=== PATIENT | male | born 1955 | race Caucasian/White ===

== ENCOUNTER → 2016-05-11 | Day surgery (SDC) | payer OTHER | END | disposition home or self-care (01) | LOC: FIMAGING 12:20 | PROVIDERS: ATTEND Internal Medicine Infectious Disease | PROC: 02HV33Z Insertion of Infusion Device into Superior Vena Cava, Percutaneous Approach (ICD-10-PCS; principal; 2016-05-11) | DX: T81.4XXA Infection following a procedure, initial encounter (principal) | CPT/HCPCS: 36569; 77001; C1751 ==

== ENCOUNTER → 2016-12-19 | Outpatient (CLI) | payer OTHER ==
[~2016-12-19] MED LIST: LIDOCAINE 1% 300 MG/30 ML SDV ONE
[2016-12-19 13:40] LABS: PROTEIN, CSF 54 mg/dL (12-60)
[2016-12-19 13:42] LABS: CSF APPEARANCE CLEAR (CLEAR); CSF COLOR COLORLESS (COLORLESS); WBC, CSF 0 /mm3 (0-5)
[2016-12-19 13:48] LABS: CSF APPEARANCE CLEAR (CLEAR); CSF COLOR COLORLESS (COLORLESS)
[2016-12-19 14:01] LABS: WBC, CSF 0 /mm3 (0-5)
== END ==
LOC: FIMAGING 08:55
PROVIDERS: ATTEND Psychiatry & Neurology Neurology
PROC: 009U3ZX Drainage of Spinal Canal, Percutaneous Approach, Diagnostic (ICD-10-PCS; principal; 2016-12-19)
DX: R25.2 Cramp and spasm (principal); R41.3 Other amnesia
CPT/HCPCS: 82784-90; 83018-90; 83916-90

== ENCOUNTER → 2017-02-07 | Outpatient (CLI) | payer OTHER | LOC: CIMAGING 14:17 | PROVIDERS: ATTEND Orthopaedic Surgery | DX: S49.91XA Unspecified injury of right shoulder and upper arm, initial encounter (principal) | CPT/HCPCS: 73030-PO ==

== ENCOUNTER 2018-05-15 06:28 | Observation (INO) | payer OTHER ==
[2018-05-15] MEDS ORDERED: DIAZEPAM 5 MG TAB PO ONE (06:33)
[2018-05-15] MEDS ORDERED: NS 1,000 ML IV ONE (06:33)
[2018-05-15] MEDS ORDERED: ASPIRIN EC 325 MG TAB PO ONE (06:33)
[2018-05-15] MEDS ORDERED: FAMOTIDINE 20 MG TAB PO ONE (06:33)
[2018-05-15] MEDS ORDERED: diphenhydrAMINE 25 MG CAP PO ONE (06:33)
[2018-05-15 07:37] LABS: PLATELET COUNT 192 10^3/uL (150-400)
[2018-05-15 07:54] LABS: INR 0.92 (0.83-1.16)
[2018-05-15] MEDS ORDERED: fentaNYL 100 MCG/2 ML INJ ONE ×2 (08:03→10:02)
[2018-05-15] MEDS ORDERED: MIDAZOLAM 2 MG/2 ML VIAL ONE ×2 (08:03→10:02)
[2018-05-15] MEDS ORDERED: LIDOCAINE 1% 300 MG/30 ML SDV ONE ×2 (08:03→09:17)
[2018-05-15] MEDS ORDERED: IOPAMIDOL (ISOVUE-370) 150 ML BTL IV ONE ×2 (08:04→10:19)
[2018-05-15] MEDS ORDERED: VERAPAMIL 5 MG/2 ML VIAL ONE (08:04)
[2018-05-15] MEDS ORDERED: HEPARIN 10,000 UNIT/10 ML MDV (1,000 UNIT/ML) ONE (08:04)
--- NOTE | 2018-05-15 08:19 | PDPROPOC ---
Sedation Plan of Care Sedation Plan of Care: vital signs stable, mental status noted, patient educated of risks, benefits, alternatives, patient can tolerate sedation ASA Classification: ASA 3 Planned drugs: fentanyl, midazolam Mallampati Score: Class 1 Mallampati Reference Image: Patient passed 3-3-2 rule?: No (high risk airway)
--- NOTE | 2018-05-15 08:20 | PDHPUP ---
History & Physical Update H&P update statement: This history and physical update is based on an assessment of the patient which was completed after admission or registration (within 24 hours), but prior to the surgery/procedure. H&P update: H&P reviewed & patient examined, no change in patient's condition since H&P completed
--- NOTE | 2018-05-15 09:20 | PDDXCAT ---
Diagnostic Cath Note - . Date: 05/15/18 Painting Department Supervisor: Shekhar Indication: CCC Class III and IV angina on medical treatment - Procedure Access: right groin Procedure: left heart catheterization, coronary angiography, left ventriculogram , right heart catheterization - Materials Left Heart Cath size: 6F Left Heart Cath materials: JL4.0, JR4.0, pigtail Right Heart Cath size: 7F - Findings-Left Heart Catheterization LM: The left main is 6mm in size and bifurcates into an LAD and circumflex system. LAD: The left anterior descending is 3.5mm in size and heavily calcified. There is dye streaming in the proximal LAD 40% at the level of the first diagonal takeoff which is approximately 2.75mm and a large and important vessel. There is a 30% stenosis of the LAD at the site of a small diagonal branch takeoff. SABAS III flow throughout. LCX: 3mm in size and gives rise to 2 improtant obtuse marginal branches. RCA: The right coronary artery is mm in size and dominant. The vessel gives rise to a PDA branch. There is a 85% lesion of the mid RCA just distal to the RV branch takeoff. EDP: 24mmHg Wall motion: On the LV gram there is normal LV systolic function. The EF is %. There are resting segmental wall motion abnormalities involving the distal anterior wall and apex as well as the distal inferior wall. 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 There is no gradient on pullback across the aortic valve. THere is no evidence of hafsa dissection or aneurysm formation of the thoracic aorta. - Findings-Right Heart Catheterization RA: ; SVC SAT 75.9% RV: 12/05/11; IVC SAT 79.8% PAOP: AO: 128/72/98; SAT 98.2% CO: 6.38 CI: 2.61 Complications: NONE Estimated blood loss: <50ml Closure method: Angioseal Assessment: The patient has severe kot[place] coronary disease with obstruction of the RCA. The patient has heavy circumfrential calcification of the LAD and there were abnormal flow characteristics distal to the lesion of the LAD. The patient has an enlarged ventricular chamber with distal and anterior wall hypokinesis, which should be further accessed with an outpatient echocardiogram. The patient has a moderately elevated LVEDP and may benefit form an srinath inhibitor diuretic combination. The patient should be treated to obtain an N-HDL less than 100mg/dL. Plan: Aspirin 81mg along with Plavix 75mg daily should be continued for at least 1 year following drug eluting stent implantation. No elective surgery for the first 3 months. Decisions to stop dual antiplatelet therapy before 1 year should involve our office [facility] . Intervention: A 6 Korean JR4 Caro Nutus guiding catheter was used for guide catheter support. A 0.014" 180 cm Intuition Wire was advanced across the lesion in question in the under direct fluoroscopic and angiographic guidance. A 3.0 x 12mm Emerge balloon was advanced over the lesion in the mid RCA and initial inflation was at 10atm for 30 seconds. The lesion was stented with a 3.0 x 28mm Xience Rekha drug eluting stent. The in-stent balloon was deployed at 14atm for 20 seconds and then inflated at 16atm for 15 seconds. Then a 3.0 x 18mm Xience Rekha stent was advanced to the mid RCA and deployed was 18atm for 20 seconds. The in-stent balloon initial inflation was at 20atm for 10 seconds, then again at 20atm for 20 seconds. The final inflation was at 20atm for 17seconds. There was ?% residual post stent implantation SABAS III flow pre and post stent implantation.
[2018-05-15] MEDS ORDERED: BIVALIRUDIN 250 MG/5 ML VIAL IV ONE ×2 (09:53→10:33)
[2018-05-15] MEDS ORDERED: OXYCODONE/APAP 5/325 TAB PO PRN (10:40)
[2018-05-15] MEDS ORDERED: PRASUGREL HCL 10 MG TAB PO ONE (10:40)
[2018-05-15] MEDS ORDERED: TEMAZEPAM 15 MG CAP PO PRN (10:40)
[2018-05-15] MEDS ORDERED: NITROGLYCERIN 0.4 MG BTL SL PRN (10:40)
[2018-05-15] MEDS ORDERED: LORazepam 2 MG/ML INJ IVP PRN (10:40)
[2018-05-15] MEDS ORDERED: ONDANSETRON 4 MG/2 ML VIAL IVP PRN (10:40)
[2018-05-15] MEDS ORDERED: ATROPINE SULFATE 1 MG/10 ML SYR IVP PRN (10:40)
[2018-05-15] MEDS ORDERED: NS 1,000 ML IV SCH (10:45)
[2018-05-15] MEDS ORDERED: PRASUGREL HCL 10 MG TAB ONE (10:53)
--- NOTE | 2018-05-15 12:27 | CPEKG ---
Test Reason : OPEN Blood Pressure : / mmHG Vent. Rate : 069 BPM Atrial Rate : 069 BPM P-R Int : 200 ms QRS Dur : 110 ms QT Int : 435 ms P-R-T Axes : 028 065 052 degrees QTc Int : 466 ms Sinus rhythm Q waves inferior leads. Low voltage, precordial leads Confirmed by Sudhakar Salas ([id number]) on 05/15/2018 12:26:16 PM Referred By: Garret Corrigan Confirmed By:Sudhakar Salas
--- NOTE | 2018-05-15 12:30 | CPEKG ---
Test Reason : OPEN Blood Pressure : / mmHG Vent. Rate : 076 BPM Atrial Rate : 075 BPM P-R Int : 207 ms QRS Dur : 107 ms QT Int : 401 ms P-R-T Axes : 009 062 040 degrees QTc Int : 451 ms Sinus rhythm Q waves inferior leads. Low voltage, precordial leads Confirmed by Sudhakar Salas ([id number]) on 05/15/2018 12:30:10 PM Referred By: Garret Corrigan Confirmed By:Sudhakar Salas
[2018-05-15] MEDS: HYDROCODONE/APAP 5/325 TAB PO PRN ×2 (12:43→19:07)
[2018-05-16] MEDS: HYDROCODONE/APAP 5/325 TAB PO PRN ×2 (00:31→07:46)
[2018-05-16] MEDS ORDERED: ASPIRIN EC 325 MG TAB PO SCH (09:00)
[2018-05-16] MEDS ORDERED: PRASUGREL HCL 10 MG TAB PO SCH (09:00)
--- NOTE | 2018-05-16 09:51 | CPEKG ---
Test Reason : OPEN Blood Pressure : / mmHG Vent. Rate : 069 BPM Atrial Rate : 068 BPM P-R Int : 197 ms QRS Dur : 110 ms QT Int : 387 ms P-R-T Axes : 022 054 045 degrees QTc Int : 415 ms Sinus rhythm Confirmed by Sudhakar Salas ([id number]) on 05/16/2018 9:51:06 AM Referred By: Garret Corrigan Confirmed By:Sudhakar Salas
[2018-05-16 10:57] VITALS: BP 148/76
[2018-05-16 12:24] LABS: PLATELET COUNT 195 10^3/uL (150-400)
--- NOTE | 2018-05-16 14:50 | ASDISCHSUM ---
Discharge Information Plan Status:Home with No Needs Medically Cleared to Leave:05/16/2018 Discharge Date:05/16/2018 02:31 PM CM D/C Disposition:Home, Routine, Self-Care ADT D/C Disposition:Home, Routine, Self-Care Projected Discharge Date:05/16/2018 02:31 PM Transportation at D/C: Discharge Delay Reason: Follow-Up Date:05/16/2018 02:31 PM Discharge Slot: Final Diagnosis: Placement Information Patient Contact Information Contact Name:MOIZ Relationship: Address:[address] [facility] City:[place] Alternate Phone: State/Zip Code:[place] [address] Email: Financial Information Financial Class:HMO and PPO Plans Primary Plan Desc:[facility] Primary Plan Number:[id number] Secondary Plan Desc: Secondary Plan Number: Assessment Information LACE LACE Length of stay for Answers: 1 day current admission Acuity / Level of Answers: No Care: Did the patient have an inpatient admission? Comorbidities - select Answers: Opioid dependence all that apply / Chronic pain # of Emergency department Answers: 0 visits in the last 6 months Score: 5 Date Signed: 05/16/2018 02:49 PM Electronically Signed By:Gisele Palomares RN Intervention Information
--- NOTE | 2018-05-16 22:00 | GDS ---
[f rep st] DISCHARGE SUMMARY ADMIT DIAGNOSIS: 1. Coronary artery disease. 2. Planned angiogram with possible percutaneous coronary intervention. DISCHARGE DIAGNOSIS: 1. Coronary artery disease. 2. Percutaneous coronary intervention of the right coronary artery with no complications. The patient was taken to the cardiac labor relations manager by Dr. Garret Corrigan on 05/15/2018. A significant occlu dilip of the RCA was found and a drug-eluting stent was placed with no complications. Right groin was used for access. There were no complications of the groin site. He was taken to PCU for overnight observation, where he has done well. He has had no arrhythmias. He has been up ambulating with no g roin site bleeding or pain. Groin instructions have been given with good understanding. At this jacklyn e, he is ready for discharge. MEDICATIONS: See medication list, listed in his chart. DISCHARGE PLAN: He will follow up in 7-10 days at [facility] with Dr. Garret Corrigan. Groin care instructions were provided, reminding him no heavy lifting, pushing, pulling greater than 10 pounds for 7 days. No sitting in a tub of water for 7 days. Okay to shower. Groin site care with soap and water. No ointments to site. Should groin site bleed, hold firm pressure. Should bleeding not stop, he is to go to the nearest em ergency room. Should he have any questions, call [facility] and ask for Dr. Corrigan's nurse at [phone]. At this time, he currently is stable for discharge. /[id number]/MODL
== END 2018-05-16 14:31 | disposition home or self-care (01) ==
LOC: FCATH 06:28 → F2W 10:43
PROVIDERS: ADMIT Internal Medicine Cardiovascular Disease; ATTEND Internal Medicine Cardiovascular Disease
PROC: B2111ZZ Fluoroscopy of Multiple Coronary Arteries using Low Osmolar Contrast (ICD-10-PCS; principal; 2018-05-15)
PROC: 027035Z Dilation of Coronary Artery, One Artery with Two Drug-eluting Intraluminal Devices, Percutaneous Approach (ICD-10-PCS; principal; 2018-05-15)
PROC: 4A023N8 Measurement of Cardiac Sampling and Pressure, Bilateral, Percutaneous Approach (ICD-10-PCS; principal; 2018-05-15)
PROC: B2151ZZ Fluoroscopy of Left Heart using Low Osmolar Contrast (ICD-10-PCS; principal; 2018-05-15)
DX: I25.119 Atherosclerotic heart disease of native coronary artery with unspecified angina pectoris (principal); E78.00 Pure hypercholesterolemia, unspecified
CPT/HCPCS: 92928; 93005; 93460; 97116; 97161; C1725; C1769; C1887; G0378; C1760; C1874; C9600; J0461; J0583; J1200; J1644; J2250; J3010; Q9967